=== PATIENT | female | born 1990 | race Caucasian/White ===

== ENCOUNTER → 2018-09-14 | Outpatient (CLI) | payer OTHER ==
--- NOTE | 2018-09-14 16:51 | REP ---
Maxillofacial CT study without contrast: History: Deviated nasal septum. Comparison is made with imaging from MRI study of the brain dated January 13, 2007. CT findings: The anterior and midportion of the nasal septum deviates slightly to the left without a visible beak. Nasal turbinate soft tissues are unremarkable. The ostiomeatal complexes are partially obscured by mucosal thickening bilaterally. There is moderate mucosal thickening affecting the left maxillary sinus and mild mucosal thickening is seen affecting the right maxillary sinus. Partial opacification is seen in the ethmoid air cells bilaterally. Mild mucosal thickening is seen in very small frontal sinuses. The mastoids are under aerated and the mastoid air cells are opacified. There is soft tissue density at least partially surrounding the middle ear ossicles bilaterally. This raises a question of cholesteatoma. No definite erosive change is seen. There are drainage tubes across each ear drum. No intraorbital abnormality is seen. Visualized intracranial structures are unremarkable. Deep facial soft tissues are unremarkable. Impression: Polysinusitis changes. Bilateral middle ear opacification with tympanic membrane drainage tubes in place bilaterally. Under aerated and opacified mastoid air cells. Minimal leftward deviation of the nasal septum without a discernible beak. Electronically Signed by Delgado Montemayor MD 09/14/2018 06:55 P
== END ==
LOC: M RAD 14:57
PROVIDERS: ATTEND Otolaryngology
DX: J34.2 Deviated nasal septum (principal)

== ENCOUNTER → 2018-10-17 | Outpatient (REF) | payer OTHER | LOC: M LAB REF 11:02 | PROVIDERS: ATTEND Otolaryngology | DX: H69.93 Unspecified Eustachian tube disorder, bilateral (principal); H92.12 Otorrhea, left ear ==

== ENCOUNTER → 2020-12-16 | Outpatient (CLI) | payer OTHER ==
[~2020-12-16] MED LIST: CELE10TA PO; FLUT1INH2 IN; LEVO112T2 PO; LEVOTAB10 PO; PROAAER10 INH; SING10TA32 PO; TIZA10TA PO
== END ==
LOC: M RAD 09:05
PROVIDERS: ATTEND Otolaryngology
DX: J30.9 Allergic rhinitis, unspecified (principal); H91.93 Unspecified hearing loss, bilateral; H69.93 Unspecified Eustachian tube disorder, bilateral

== ENCOUNTER → 2021-01-02 | Outpatient (CLI) | payer OTHER ==
[~2021-01-02] MED LIST changes: -TIZA10TA PO; +TIZA4TAB4 PO
== END ==
LOC: M LABSMTC 12:26
PROVIDERS: ATTEND Anesthesiology
DX: Z01.812 Encounter for preprocedural laboratory examination (principal); Z11.52 Encounter for screening for COVID-19

== ENCOUNTER → 2021-01-05 | Day surgery (SDC) | payer OTHER ==
[~2021-01-05] VITALS: Ht 170.2 cm; Wt 100.7 kg
[~2021-01-05] MED LIST changes: +ACETAMINOPHEN TAB 650MG DOSE (2X325MG) PO PRN; +CIPRODEX OTIC SUSP 7.5ML As Ordered ONE; +HYDROMORPHONE HCL 0.5 MG/ 0.5 ML SYRINGE (J1170 PER 1) IV PRN; +LACRILUBE (AKWA TEARS) OPHTH OINT 3.5 GM As Ordered ONE; +LIDOCAINE 1% MDV 20ML VIAL SQ PRN; +LIDOCAINE 2% 100MG/5ML SDV (FOR ANES.) As Ordered ONE; +LR 1,000 ML IV SCH; +METHYLENE BLUE 0.5% (5MG/ML) 10 ML AMP (PROVAYBLUE) As Ordered ONE; +MIDAZOLAM INJ 2MG/2ML VIAL (J2250 PER 1MG) As Ordered ONE; +ONDANSETRON 4MG/2ML VIAL As Ordered ONE; +ONDANSETRON 4MG/2ML VIAL IV PRN; +OXYMETAZOLINE 0.05% NASAL SPRAY (AFRIN) As Ordered ONE; +ROCURONIUM BROMIDE 50 MG/5 ML VIAL As Ordered ONE; +SUGAMMADEX SODIUM 500 MG/5 ML VIAL (BRIDION) As Ordered ONE; +dexameTHASONE 4 MG/ML 1ML VIAL (J1100 PER 1MG) As Ordered ONE; +fentaNYL 100 MCG/2 ML INJECTION (J3010) IV PRN; +fentaNYL 250 MCG/5 ML INJECTION (J3010) As Ordered ONE; +oxyCODONE 5MG TAB PO PRN; +propofoL 200 MG/20 ML VIAL As Ordered ONE
[2021-01-05 11:25] VITALS: BP 131/75
--- NOTE | 2021-01-05 15:50 | POST-OPPD ---
Postoperative Procedure Note Date Of Procedure: Jan 05, 2021 Time Of Procedure: 07:30 PREOPERATIVE DIAGNOSIS: [Chronic eustachian tube dysfunction] POSTOPERATIVE DIAGNOSIS: [Same] PROCEDURE: [Bilateral eustachian tube dilatation with endoscopic guidance. Bilateral pressure equalization tube placement] SURGEON: [Sen] NET APPLICATION SUPPORT SPECIALIST: [None] ANESTHESIA: [General] ESTIMATED BLOOD LOSS: [Less than 5 mL] FINDINGS: SPECIMENS: [None] COMPLICATIONS: [None] REPLACED: [None] DRAINS: [None] POSTOPERATIVE CONDITION: [Stable] Operative note: Hanna is a patient seen in the office and diagnosed with the above condition decision was made in consultation with the patient after explanation of the risks and benefits to undergo the above-named procedure she was admitted to the same-day surgery program where she was taken to the operating room administered a general anesthetic via intravenous injection. She was then intubated endotracheally. The microscope was brought into position a speculum placed in the right ear canal and incision was made in the anterior-inferior portion of the tympanic membrane a titanium tube was placed. 2 drops of Floxin were applied. Speculum was removed and placed to the opposite ear microscope was brought into position. The tympanic membrane was visualized. An anterior- inferior incision was created a titanium tube was placed through the incision 2 drops of Floxin were applied speculum was removed the microscope was removed from the room. The 4 mm endoscope was then placed into the nasal cavity and advanced to the eustachian tube opening on the left the balloon was placed up into the eustachian tube and dilated for 2 minutes. This was then removed the endoscope was then placed in the right nasal cavity and advanced to the right eustachian tube opening the balloon was placed into the eustachian tube on this side and dilated for 2 minutes. This was then removed the endoscope was removed from the nose. Patient was allowed to recover from anesthetic and taken to the postanesthesia care area in stable condition. Leandro Chatterjee MD Jan 05, 2021 15:50
== END | disposition home or self-care (01) ==
LOC: M SDC 06:10
PROVIDERS: ATTEND Otolaryngology
DX: H69.83 Other specified disorders of Eustachian tube, bilateral (principal); E06.3 Autoimmune thyroiditis; G93.5 Compression of brain; F41.9 Anxiety disorder, unspecified; J45.909 Unspecified asthma, uncomplicated; Z86.16 Personal history of COVID-19; R06.83 Snoring; Z88.1 Allergy status to other antibiotic agents; Z88.5 Allergy status to narcotic agent; Z88.2 Allergy status to sulfonamides; Z88.8 Allergy status to other drugs, medicaments and biological substances; Z91.048 Other nonmedicinal substance allergy status; Z79.899 Other long term (current) drug therapy; Z79.51 Long term (current) use of inhaled steroids
CPT/HCPCS: 69436; 69706; J1100; J1170; J2250; J2405; J3010; Q9968

== ENCOUNTER → 2022-06-29 | Outpatient (REF) | payer OTHER, BC ==
[~2022-06-29] MED LIST changes: -ACETAMINOPHEN TAB 650MG DOSE (2X325MG) PO PRN; -CIPRODEX OTIC SUSP 7.5ML As Ordered ONE; -HYDROMORPHONE HCL 0.5 MG/ 0.5 ML SYRINGE (J1170 PER 1) IV PRN; -LACRILUBE (AKWA TEARS) OPHTH OINT 3.5 GM As Ordered ONE; -LIDOCAINE 1% MDV 20ML VIAL SQ PRN; -LIDOCAINE 2% 100MG/5ML SDV (FOR ANES.) As Ordered ONE; -LR 1,000 ML IV SCH; -METHYLENE BLUE 0.5% (5MG/ML) 10 ML AMP (PROVAYBLUE) As Ordered ONE; -MIDAZOLAM INJ 2MG/2ML VIAL (J2250 PER 1MG) As Ordered ONE; -ONDANSETRON 4MG/2ML VIAL As Ordered ONE; -ONDANSETRON 4MG/2ML VIAL IV PRN; -OXYMETAZOLINE 0.05% NASAL SPRAY (AFRIN) As Ordered ONE; -ROCURONIUM BROMIDE 50 MG/5 ML VIAL As Ordered ONE; -SUGAMMADEX SODIUM 500 MG/5 ML VIAL (BRIDION) As Ordered ONE; +TIZA10TA PO; -TIZA4TAB4 PO; -dexameTHASONE 4 MG/ML 1ML VIAL (J1100 PER 1MG) As Ordered ONE; -fentaNYL 100 MCG/2 ML INJECTION (J3010) IV PRN; -fentaNYL 250 MCG/5 ML INJECTION (J3010) As Ordered ONE; -oxyCODONE 5MG TAB PO PRN; -propofoL 200 MG/20 ML VIAL As Ordered ONE
== END ==
LOC: M LAB REF 17:14
PROVIDERS: ATTEND Otolaryngology
DX: J34.81 Nasal mucositis (ulcerative) (principal)

== ENCOUNTER → 2022-08-20 | Outpatient (CLI) | payer BC, OTHER ==
[~2022-08-20] MED LIST changes: +MONT-5 PO; -SING10TA32 PO
== END ==
LOC: M RAD 07:29
PROVIDERS: ATTEND Otolaryngology
DX: G50.1 Atypical facial pain (principal)

== ENCOUNTER 2023-03-14 10:48 | Day surgery (SDC) | payer BC ==
[~2023-03-14] VITALS: Ht 172.7 cm; Wt 91.2 kg
[~2023-03-14 10:48] MED LIST changes: +IBUP200C25 PO; +PROA1AER2 INH
[2023-03-14] MEDS ORDERED: LR 1,000 ML IV SCH ×3 (11:15→13:35)
[2023-03-14] MEDS ORDERED: OMEP-173 (11:20)
[2023-03-14] MEDS ORDERED: ROCURONIUM BROMIDE 50MG/5ML VIAL As Ordered ONE (11:37)
[2023-03-14] MEDS ORDERED: propofoL 200 MG/20 ML VIAL As Ordered ONE (11:37)
[2023-03-14] MEDS ORDERED: LIDOCAINE 2% 100MG/5ML SDV (FOR ANES.) As Ordered ONE (11:37)
[2023-03-14] MEDS ORDERED: fentaNYL 100 MCG/2 ML INJECTION As Ordered ONE (11:38)
[2023-03-14] MEDS ORDERED: MIDAZOLAM INJ 2MG/2ML VIAL As Ordered ONE (11:38)
[2023-03-14] MEDS ORDERED: LIDOCAINE W/EPINEPHRINE 1% 20ML VIAL As Ordered ONE (12:14)
[2023-03-14] MEDS ORDERED: COCAINE 4% 4ML NASAL SOLUTION BTL As Ordered ONE (12:14)
[2023-03-14] MEDS ORDERED: OXYMETAZOLINE 0.05% NASAL SPRAY (AFRIN) As Ordered ONE ×2 (12:14→12:15)
[2023-03-14] MEDS ORDERED: ONDANSETRON 4MG 2ML VIAL As Ordered ONE (12:38)
[2023-03-14] MEDS ORDERED: ACETAMINOPHEN 1000MG 100ML IV BAG As Ordered ONE (12:42)
[2023-03-14] MEDS ORDERED: SUGAMMADEX SODIUM 500 MG/5 ML VIAL (BRIDION) As Ordered ONE (12:55)
[2023-03-14] MEDS ORDERED: ONDANSETRON 4MG 2ML VIAL IV PRN ×2 (12:55→13:35)
[2023-03-14] MEDS: fentaNYL 100 MCG/2 ML INJECTION IV PRN ×4 (13:10→13:45)
[2023-03-14] MEDS ORDERED: ANEXSIA, NORCO 7.5MG/325MG TABLET(HYDROCODONE/APAP) PO PRN (13:35)
[2023-03-14 14:36] VITALS: BP 144/83; TEMP 97.5; O2SAT 98
== END 2023-03-14 14:43 | disposition home or self-care (01) ==
LOC: M SDC 10:48
PROVIDERS: ATTEND Otolaryngology
DX: J34.3 Hypertrophy of nasal turbinates (principal); J45.909 Unspecified asthma, uncomplicated; Z88.1 Allergy status to other antibiotic agents; Z88.5 Allergy status to narcotic agent; Z88.2 Allergy status to sulfonamides; Z88.8 Allergy status to other drugs, medicaments and biological substances; Z91.048 Other nonmedicinal substance allergy status; Z79.899 Other long term (current) drug therapy
CPT/HCPCS: 30802; C9143; J0131; J1100; J2250; J2405; J3010

== ENCOUNTER → 2024-07-13 | Outpatient (CLI) | payer BC ==
[~2024-07-13] MED LIST changes: +OMEP-173
== END ==
LOC: M WUC 11:16
PROVIDERS: ATTEND Physician Assistant
DX: M79.601 Pain in right arm (principal)